=== PATIENT | female | born 1970 | race Hispanic/Latino ===

== ENCOUNTER 2018-02-12 03:50 | Inpatient (IN) | payer OTHER ==
[~2018-02-12] VITALS: Ht 152.4 cm; Wt 111.9 kg
[2018-02-12] MEDS ORDERED: IPRATROPIUM/ALBUTEROL SULFATE 3 ML SOLUTION IH ONE (04:28)
[2018-02-12 04:29] LABS: BASOPHILS % (AUTO) 0.6 % (0.0-5.0); EOSINOPHILS % (AUTO) 0.7 % (0.0-8.0); HEMATOCRIT 31.6 % (36-48); MEAN CORPUSCULAR HEMOGLOBIN 29.8 pg (27.0-33.0); MEAN CORPUSCULAR HGB CONC 32.9 g/dL (32.0-36.0); MEAN CORPUSCULAR VOLUME 90.6 fL (79-99); MONOCYTES % (AUTO) 4.1 % (3.0-13.0); NEUTROPHILS % (AUTO) 82.6 % (40.0-77.0); PLATELET COUNT (AUTO) 196 K/uL (130-400); RED BLOOD CELL COUNT(AUTO) 3.49 MIL/uL (4.00-5.50); RED CELL DISTRIBUTION WIDTH 13.8 % (11.0-15.5); WHITE BLOOD COUNT (AUTO) 13.3 K/uL (4.8-10.8)
[2018-02-12] MEDS ORDERED: CEFTRIAXONE SODIUM 2 GM VIAL ONE (04:30)
[2018-02-12] MEDS ORDERED: METHYLPREDNISOLONE SOD SUCC 125MG/2ML VIAL ONE (04:30)
[2018-02-12] MEDS ORDERED: SODIUM CHLORIDE 0.9% 1000ML 2,000 ML IV ONE (04:30)
[2018-02-12 04:51] LABS: INR 0.96 (0.85-1.15); PARTIAL THROMBOPLASTIN TIME 26.6 SEC (26.3-35.5); PROTHROMBIN TIME 10.1 SEC (9.6-11.6)
[2018-02-12 05:32] LABS: ALBUMIN 2.3 g/dL (3.5-5.0); BILIRUBIN,TOTAL 0.4 mg/dL (0.2-1.0); CREATINE KINASE MB 14.9 ng/mL (0.5-3.6); CREATININE 4.3 mg/dL (0.5-1.5); TOTAL PROTEIN, SERUM 6.1 g/dL (6.0-8.3)
[2018-02-12] MEDS ORDERED: INSULIN HUMULIN R 100 UNIT/ML 3ML ONE ×2 (05:45→08:37)
[2018-02-12] MEDS ORDERED: SODIUM POLYSTYRENE SULFONATE 15 GM/60 ML ML PO SCH ×2 (10:03→17:15)
[2018-02-12] MEDS ORDERED: ESCI10TA54 PO (10:27)
[2018-02-12] MEDS ORDERED: ASPI-1026 PO (10:27)
[2018-02-12] MEDS ORDERED: OMEP40CA37 PO (10:27)
[2018-02-12] MEDS ORDERED: [UNRECOGNIZED DRUG - CODE] PO (10:27)
[2018-02-12] MEDS ORDERED: ROSU20TA30 PO (10:27)
[2018-02-12] MEDS ORDERED: GABA-529 PO (10:27)
[2018-02-12] MEDS ORDERED: LOSA100T29 PO (10:27)
[2018-02-12 10:30] VITALS: BP 164/64
[2018-02-12] MEDS ORDERED: IPRA3AMP24 IH (10:32)
[2018-02-12 10:45] LABS: APPEARANCE,URINE Clear (CLEAR); BILIRUBIN,URINE Negative (NEGATIVE); COLOR,URINE Yellow (YELLOW); GLUCOSE, URINE (UA) 250 mg/dL (NEGATIVE); KETONES,URINE Negative (NEGATIVE); LEUKOCYTE ESTERASE ,URINE Negative (NEGATIVE); NITRATE,URINE Negative (NEGATIVE); OCCULT BLOOD,URINE Moderate (NEGATIVE); PROTEIN,URINE 300 (NEGATIVE); UROBILINOGEN,URINE 0.2 mg/dL (0.2-1.0)
[2018-02-12 10:57] LABS: BACTERIA,URINE Few /HPF (None Seen)
[2018-02-12 10:58] LABS: RBC,URINE 0-1 /HPF (0-1)
[2018-02-12] MEDS ORDERED: GLUCAGON 1MG KIT 1 MG ML IM PRN (11:00)
[2018-02-12] MEDS ORDERED: HYDRALAZINE HCL 20 MG/ML VIAL IV PRN (11:00)
[2018-02-12] MEDS ORDERED: ACETAMINOPHEN 325 MG TAB PO PRN ×2 (11:00→17:15)
[2018-02-12] MEDS ORDERED: POTASSIUM CHLORIDE 10% ELIXIR 20 MEQ/15 ML UDCUP PO PRN (11:00)
[2018-02-12] MEDS ORDERED: LIDOCAINE HCL-MPF 1% 2ML VIAL IJ PRN (11:00)
[2018-02-12] MEDS ORDERED: POTASSIUM CHLORIDE 20 MEQ ERTAB PO PRN (11:00)
[2018-02-12] MEDS ORDERED: DEXTROSE 50%-WATER 50 ML DISP.SYRIN IV PRN (11:00)
[2018-02-12] MEDS ORDERED: POTASSIUM CHLORIDE 20MEQ/100ML 100 ML IV PRN (11:00)
[2018-02-12] MEDS: INSULIN R PO SS1 SQ SCH ×2 (11:36→17:04)
[2018-02-12] MEDS ORDERED: INSU100C6 SQ (11:44)
[2018-02-12] MEDS ORDERED: INSU10VI3 SQ (11:44)
[2018-02-12 12:00] VITALS: BP 137/60
[2018-02-12] MEDS ORDERED: IPRATROPIUM/ALBUTEROL SULFATE 3 ML SOLUTION IH PRN (13:00)
[2018-02-12] MEDS: AMLODIPINE BESYLATE 5 MG TAB PO SCH (13:50)
[2018-02-12 16:30] VITALS: BP 145/71
[2018-02-12] MEDS: METOCLOPRAMIDE 5 MG TABLET PO SCH ×2 (16:58→20:54)
[2018-02-12] MEDS ORDERED: ONDANSETRON HCL MDV 20ML 2 MG/ML VIAL IVP PRN (17:15)
[2018-02-12] MEDS ORDERED: LABETALOL 20 MG/4 ML DISP.SYRIN IV PRN (17:15)
[2018-02-12] MEDS ORDERED: PANTOPRAZOLE SODIUM 40 MG TABLET.DR PO SCH ×2 (17:15→21:00)
[2018-02-12] MEDS ORDERED: INSULIN HUMULIN R 100 UNIT/ML 3ML SQ SCH (17:15)
[2018-02-12] MEDS ORDERED: CALCIUM GLUCONATE 1 GM/10 ML VIAL IV SCH (17:15)
[2018-02-12] MEDS ORDERED: CALCIUM GLUCONATE 1 GM in SODIUM CHLORIDE 0.9% 50 ML IV SCH (17:42)
[2018-02-12] MEDS ORDERED: LABETALOL HCL 5 MG/ML 20ML VIAL IV PRN (17:49)
[2018-02-12 19:35] VITALS: BP 165/72
[2018-02-12] MEDS: METOPROLOL TARTRATE 50 MG TAB PO SCH (20:54)
[2018-02-12] MEDS ORDERED: INSULIN GLARGINE 100 UNITS/ML 10 ML VIAL SQ SCH (21:00)
[2018-02-12] MEDS ORDERED: ATORVASTATIN CALCIUM 40 MG TABLET PO SCH (21:00)
[2018-02-12] MEDS: INSULIN HUMULIN R 100 UNIT/ML 3ML SQ SCH (21:08)
[2018-02-13 00:09] VITALS: BP 128/65
[2018-02-13 03:40] VITALS: BP 139/66
[2018-02-13 05:35] LABS: HEMATOCRIT 28.4 % (36-48); MEAN CORPUSCULAR HEMOGLOBIN 29.3 pg (27.0-33.0); MEAN CORPUSCULAR VOLUME 88.6 fL (79-99); PLATELET COUNT (AUTO) 171 K/uL (130-400); RED CELL DISTRIBUTION WIDTH 13.6 % (11.0-15.5); WHITE BLOOD COUNT (AUTO) 11.6 K/uL (4.8-10.8)
[2018-02-13] MEDS: INSULIN HUMULIN R 100 UNIT/ML 3ML SQ SCH ×4 (05:40→12:13)
[2018-02-13 05:58] LABS: CREATININE 3.7 mg/dL (0.5-1.5); POTASSIUM 4.2 mmol/L (3.5-5.1)
[2018-02-13] MEDS: METOCLOPRAMIDE 5 MG TABLET PO SCH ×2 (06:36→10:43)
[2018-02-13 07:53] VITALS: BP 141/58
[2018-02-13] MEDS ORDERED: ASPIRIN 325 MG TABLET PO SCH (08:00)
[2018-02-13] MEDS: METOPROLOL TARTRATE 50 MG TAB PO SCH (08:43)
[2018-02-13] MEDS ORDERED: CITALOPRAM 20 MG TABLET PO SCH (09:00)
[2018-02-13] MEDS ORDERED: ENOXAPARIN SODIUM 30 MG/0.3 ML SQ SCH (09:00)
[2018-02-13 11:36] VITALS: BP 145/79
[2018-02-13] MEDS ORDERED: METO5TAB2 PO (12:05)
[2018-02-13] MEDS ORDERED: AMLO5TAB4 PO (12:05)
[2018-02-13] MEDS ORDERED: METO50 PO (12:05)
[2018-02-13] MEDS ORDERED: INSULIN HUMULIN R 100 UNIT/ML 3ML SQ SCH ×2 (12:08→12:15)
[2018-02-13] MEDS: AMLODIPINE BESYLATE 5 MG TAB PO SCH (12:09)
[2018-02-19] MEDS ORDERED: ERGOCALCIFEROL (VITAMIN D2) 50,000 UNIT CAPSULE PO SCH (09:00)
== END 2018-02-13 15:02 | disposition home or self-care (01) | DRG 641 ==
LOC: EDH 03:50 → EDHIP 07:51 → 4BH 09:28
PROVIDERS: ADMIT Internal Medicine Nephrology; ATTEND Internal Medicine Nephrology
DX: E87.5 Hyperkalemia (principal); I12.0 Hypertensive chronic kidney disease with stage 5 chronic kidney disease or end stage renal disease; Z68.42 Body mass index [BMI] 45.0-49.9, adult; N18.5 Chronic kidney disease, stage 5; E44.0 Moderate protein-calorie malnutrition; F32.9 Major depressive disorder, single episode, unspecified; K21.9 Gastro-esophageal reflux disease without esophagitis; N28.9 Disorder of kidney and ureter, unspecified; E87.70 Fluid overload, unspecified; J45.909 Unspecified asthma, uncomplicated; D64.9 Anemia, unspecified; E66.9 Obesity, unspecified; E11.22 Type 2 diabetes mellitus with diabetic chronic kidney disease; E78.00 Pure hypercholesterolemia, unspecified; Z90.710 Acquired absence of both cervix and uterus; Z83.3 Family history of diabetes mellitus; Z82.49 Family history of ischemic heart disease and other diseases of the circulatory system; Z90.49 Acquired absence of other specified parts of digestive tract; Z79.4 Long term (current) use of insulin
CPT/HCPCS: 36415; 71045; 80048; 80053; 81001; 82550; 82553; 82947; 82948; 83605; 83874; 84132; 84484; 85025; 85027; 85610; 85730; 87040; 87088; 87186; 93005; 94640; 94664; 99291; J0610; J0696; J1650; J1815; J2930; J3490; J7030